=== PATIENT | female | born 1995 | race Caucasian/White ===

== ENCOUNTER 2016-11-06 00:04 | Emergency (ER) | payer MEDICAID ==
[~2016-11-06] VITALS: Ht 162.6 cm; Wt 60.0 kg
[2016-11-06 01:43] LABS: BLOOD UREA NITROGEN 9 mg/dL (7-18)
[2016-11-06 04:52] VITALS: BP 122/73
== END 2016-11-06 05:39 | disposition home or self-care (01) ==
LOC: ED 05:30
DX: S05.11XA Contusion of eyeball and orbital tissues, right eye, initial encounter (principal); S02.2XXA Fracture of nasal bones, initial encounter for closed fracture; F10.120 Alcohol abuse with intoxication, uncomplicated; Y04.8XXA Assault by other bodily force, initial encounter; Y93.89 Activity, other specified; Y92.89 Other specified places as the place of occurrence of the external cause; Y99.8 Other external cause status
CPT/HCPCS: 36415; 70450; 70486; 72125; 80048; 80307; 82040; 84703; 85025